=== PATIENT | female | born 1995 | race Caucasian/White ===

== ENCOUNTER 2017-09-16 10:18 | Observation (INO) | payer BC ==
[2017-09-16] VITALS (12 sets, daily range): BP systolic 96–109; BP diastolic 51–74
--- NOTE | 2017-09-16 10:29 | ER Report ---
History and Physical Time Seen By MD: 10:28 Hx. of Stated Complaint: Patient complains of abdominal pain since yesterday. Started high and has moved low. Associated vomitting and diarrhea HPI/ROS CHIEF COMPLAINT: Abdominal pain HISTORY OF PRESENT ILLNESS: Patient is a 22-year-old female presents with diffuse abdominal pain which started in the midepigastrium is located in the periumbilical distribution. The patient reports that the pain started yesterday evening and has persisted throughout the night. Last solid intake was yesterday evening. Patient reports having nausea and vomiting throughout the morning with persistent pain. She has not been able to tolerate oral intake today. Patient is afebrile, hemodynamically stable time of evaluation. Denies headache, blurred vision, chest pain, shortness of breath. She didn't complain of mild dysuria. REVIEW OF SYSTEMS: Constitutional: No fever, no chills. Eyes: No discharge. ENT: No sore throat. Cardiovascular: No chest pain, no palpitations. Respiratory: No cough, no shortness of breath. Gastrointestinal: + Periumbilical abdominal pain, + nausea and vomiting. Genitourinary: No hematuria, + mild dysuria Musculoskeletal: No back pain. Skin: No rashes. Neurological: No headache. Allergies: Coded Allergies: No Known Drug Allergies (Unverified , 09/16/17) Home Meds No Active Prescriptions or Reported Meds Hx Substance Use Disorder: No Hx Alcohol Use: No Constitutional Vital Sign - Last 24 Hours 09/16/17 10:21 Temp 97.9 Pulse 78 Resp 16 B/P (MAP) 115/73 Pulse Ox 98 O2 Delivery Room Air Physical Exam General Appearance: The patient is alert, has no immediate need for airway protection and no signs of toxicity. No acute distress Eyes: Pupils equal and round no pallor or injection. ENT, Mouth: Mucous membranes are moist. Respiratory: There are no retractions, lungs are clear to auscultation. Cardiovascular: Regular rate and rhythm. [ ] Gastrointestinal: Abdomen is soft and + tender to palpation in periumbilical distribution, no masses, bowel sounds normal. Neurological: No focal deficits Skin: Warm and dry, no rashes. Musculoskeletal: Neck is supple non tender. Extremities are nontender, nonswollen and have full range of motion. DIFFERENTIAL DIAGNOSIS: After history and physical exam differential diagnosis was considered for abdominal pain including but not limited to appendicitis, cholecystitis, gastritis and urinary tract infection. Medical Decision Making Data Points Result Diagram: 09/16/17 1032 09/16/17 1032 Laboratory Hematology Test 09/16/17 10:32 09/16/17 11:27 Red Blood Count 4.83 M/uL (4.17-5.56) Mean Corpuscular Volume 89.9 fL (80.0-96.0) Mean Corpuscular Hemoglobin 31.6 pg (26.0-33.0) Mean Corpuscular Hemoglobin Concent 35.1 g/dL (32.0-36.0) Red Cell Distribution Width 13.0 % (11.5-14.5) Mean Platelet Volume 9.4 fL (7.2-11.1) Neutrophils (%) (Auto) 92.2 % (39.4-72.5) Lymphocytes (%) (Auto) 2.1 % (17.6-49.6) Monocytes (%) (Auto) 5.4 % (4.1-12.4) Eosinophils (%) (Auto) 0.0 % (0.4-6.7) Basophils (%) (Auto) 0.3 % (0.3-1.4) Nucleated RBC Relative Count (auto) 0.0 /100WBC Neutrophils # (Auto) 22.3 K/uL (2.0-7.4) Lymphocytes # (Auto) 0.5 K/uL (1.3-3.6) Monocytes # (Auto) 1.3 K/uL (0.3-1.0) Eosinophils # (Auto) 0.0 K/uL (0.0-0.5) Basophils # (Auto) 0.1 K/uL (0.0-0.1) Nucleated RBC Absolute Count (auto) 0.00 K/uL Sodium Level 138 mmol/L (137-145) Potassium Level 3.6 mmol/L (3.5-5.0) Chloride Level 100 mmol/L (98-107) Carbon Dioxide Level 22 mmol/L (22-31) Blood Urea Nitrogen 11 mg/dl (7-18) Creatinine 0.80 mg/dl (0.52-1.04) Glomerular Filtration Rate Calc > 60.0 Random Glucose 127 mg/dl (75-110) Calcium Level 9.9 mg/dl (8.4-10.2) Total Bilirubin 1.2 mg/dl (0.2-1.3) Aspartate Amino Transf (AST/SGOT) 22 U/L (0-35) Alanine Aminotransferase (ALT/SGPT) 21 U/L (0-56) Alkaline Phosphatase 70 U/L (0-126) Total Protein 7.9 gm/dl (6.3-8.2) Albumin 4.8 g/dl (3.5-5.0) Lipase 41 U/L (23-300) Human Chorionic Gonadotropin, Qual Negative (NEGATIVE) Urine Color Yellow Urine Clarity Slightly-cloudy Urine pH 6.0 pH (4.8-9.5) Urine Specific Randolph 1.026 Urine Protein 30 mg/dL (NEGATIVE) Urine Glucose (UA) Negative mg/dL (NEGATIVE) Urine Ketones 80 mg/dL (NEGATIVE) Urine Blood Negative (NEGATIVE) Urine Nitrite Negative (NEGATIVE) Urine Bilirubin Negative (NEGATIVE) Urine Urobilinogen Negative mg/dL (0.2-1.9) Urine Leukocyte Esterase Negative (NEGATIVE) Urine RBC None /HPF (0-2/HPF) Urine WBC 1 /HPF (0-5/HPF) Urine Squamous Epithelial Cells Moderate /LPF (</=FEW) Urine Bacteria Negative /HPF (NONE-FEW) Urine Mucus Few /HPF (NONE-FEW) Chemistry Test 09/16/17 10:32 09/16/17 11:27 White Blood Count 24.1 k/uL (4.5-11.0) Red Blood Count 4.83 M/uL (4.17-5.56) Hemoglobin 15.3 g/dL (12.0-16.0) Hematocrit 43.5 % (34.0-47.0) Mean Corpuscular Volume 89.9 fL (80.0-96.0) Mean Corpuscular Hemoglobin 31.6 pg (26.0-33.0) Mean Corpuscular Hemoglobin Concent 35.1 g/dL (32.0-36.0) Red Cell Distribution Width 13.0 % (11.5-14.5) Platelet Count 231 K/uL (150-450) Mean Platelet Volume 9.4 fL (7.2-11.1) Neutrophils (%) (Auto) 92.2 % (39.4-72.5) Lymphocytes (%) (Auto) 2.1 % (17.6-49.6) Monocytes (%) (Auto) 5.4 % (4.1-12.4) Eosinophils (%) (Auto) 0.0 % (0.4-6.7) Basophils (%) (Auto) 0.3 % (0.3-1.4) Nucleated RBC Relative Count (auto) 0.0 /100WBC Neutrophils # (Auto) 22.3 K/uL (2.0-7.4) Lymphocytes # (Auto) 0.5 K/uL (1.3-3.6) Monocytes # (Auto) 1.3 K/uL (0.3-1.0) Eosinophils # (Auto) 0.0 K/uL (0.0-0.5) Basophils # (Auto) 0.1 K/uL (0.0-0.1) Nucleated RBC Absolute Count (auto) 0.00 K/uL Glomerular Filtration Rate Calc > 60.0 Calcium Level 9.9 mg/dl (8.4-10.2) Total Bilirubin 1.2 mg/dl (0.2-1.3) Aspartate Amino Transf (AST/SGOT) 22 U/L (0-35) Alanine Aminotransferase (ALT/SGPT) 21 U/L (0-56) Alkaline Phosphatase 70 U/L (0-126) Total Protein 7.9 gm/dl (6.3-8.2) Albumin 4.8 g/dl (3.5-5.0) Lipase 41 U/L (23-300) Human Chorionic Gonadotropin, Qual Negative (NEGATIVE) Urine Color Yellow Urine Clarity Slightly-cloudy Urine pH 6.0 pH (4.8-9.5) Urine Specific Randolph 1.026 Urine Protein 30 mg/dL (NEGATIVE) Urine Glucose (UA) Negative mg/dL (NEGATIVE) Urine Ketones 80 mg/dL (NEGATIVE) Urine Blood Negative (NEGATIVE) Urine Nitrite Negative (NEGATIVE) Urine Bilirubin Negative (NEGATIVE) Urine Urobilinogen Negative mg/dL (0.2-1.9) Urine Leukocyte Esterase Negative (NEGATIVE) Urine RBC None /HPF (0-2/HPF) Urine WBC 1 /HPF (0-5/HPF) Urine Squamous Epithelial Cells Moderate /LPF (</=FEW) Urine Bacteria Negative /HPF (NONE-FEW) Urine Mucus Few /HPF (NONE-FEW) Urinalysis Test 09/16/17 11:27 Urine Color Yellow Urine Clarity Slightly-cloudy Urine pH 6.0 pH (4.8-9.5) Urine Specific Randolph 1.026 Urine Protein 30 mg/dL (NEGATIVE) Urine Glucose (UA) Negative mg/dL (NEGATIVE) Urine Ketones 80 mg/dL (NEGATIVE) Urine Blood Negative (NEGATIVE) Urine Nitrite Negative (NEGATIVE) Urine Bilirubin Negative (NEGATIVE) Urine Urobilinogen Negative mg/dL (0.2-1.9) Urine Leukocyte Esterase Negative (NEGATIVE) Urine RBC None /HPF (0-2/HPF) Urine WBC 1 /HPF (0-5/HPF) Urine Squamous Epithelial Cells Moderate /LPF (</=FEW) Urine Bacteria Negative /HPF (NONE-FEW) Urine Mucus Few /HPF (NONE-FEW) ED Course/Re-evaluation ED Course Patient is a 22-year-old female here with complaints of abdominal pain since yesterday, last solid oral intake was yesterday evening. She reports nausea and vomiting throughout the morning and migration of pain to the periumbilical area from the midepigastric area. Patient was noted to have a leukocytosis of 24, 000. She was given fluids, Zofran, analgesia and was found to have an unremarkable x-ray series. Due to the leukocytosis and persistent pain, patient was taken for CT imaging which identified an uncomplicated appendicitis. I discussed the patient with Dr. Laboy who accepted the patient for surgery. Zosyn was administered. Decision to Disposition Date: Sep 16, 2017 Decision to Disposition Time: 13:20 Depart Departure Latest Vital Signs Vital Signs Date Time Temp Pulse Resp B/P (MAP) Pulse Ox O2 Delivery O2 Flow Rate FiO2 09/16/17 10:21 97.9 78 16 115/73 98 Room Air Impression: Primary Impression: Appendicitis Condition: Improved Disposition: Admitted from ER New Scripts No Active Prescriptions or Reported Meds MAYA ALANIZ DO Sep 16, 2017 10:29
[2017-09-16] MEDS ORDERED: NS(*) 0.9% 1000 ML BAG 1,000 ML IV ONE (10:33)
[2017-09-16] MEDS ORDERED: ONDANSETRON 4 MG/2 ML VIAL IVP ONE (10:35)
[2017-09-16 10:42] LABS: PLATELET COUNT, AUTOMATED 231 K/uL (150-450)
[2017-09-16] MEDS ORDERED: MORPHINE 4 MG/ML SDV IVP ONE (10:45)
--- NOTE | 2017-09-16 11:25 | RADIOLOGY IMAGING REPORT ---
FACILITY: [facility] - [place] PATIENT NAME: Shefali Browne : 1995 MR: [id number] V: [id number] EXAM DATE: ORDERING PHYSICIAN: MAYA ALANIZ TECHNOLOGIST: Location: [facility] - [place] Patient: Shefali Browne : 1995 Visit/Account:[id number] Date of Sevice: 09/16/2017 ACUTE ABDOMEN SERIES 3 VIEW HISTORY: abdominal pain Chest and three-view examination of the abdomen FINDINGS: Nonspecific bowel gas pattern. No abdominal mass lesions. No abnormal calcifications. Chest is clear. Apparent extraneous foreign material overlying the central heart shadow. Bony structures unremarkabl e. IMPRESSION: 1. Unremarkable abdominal series. 2. Normal chest Report Dictated By: Wilfredo Gregg MD at 09/16/2017 11:20 AM Report E-Signed By: Wilfredo Gregg MD at 09/16/2017 11:22 AM WSN:[id number]
[2017-09-16] MEDS ORDERED: IOPAMIDOL 76% 75 ML INFUS BTL 75 ML ONE (11:39)
--- NOTE | 2017-09-16 12:40 | RADIOLOGY IMAGING REPORT ---
FACILITY: [facility] - [place] PATIENT NAME: Shefali Bronwe : 1995 MR: [id number] V: [id number] EXAM DATE: ORDERING PHYSICIAN: MAYA ALANIZ TECHNOLOGIST: Location: [facility] - [place] Patient: Shefali Browne : 1995 Visit/Account:[id number] Date of Sevice: 09/16/2017 EXAMINATION: CT abdomen and pelvis with contrast COMPARISON: None. HISTORY: leukocytosis, abdominal pain PROCEDURE: Multiplanar contrast enhanced CT of the abdomen and pelvis with 75 mL intravenous Isovue 3 70. One of the following dose optimization techniques was utilized in the performance of this exam: A utomated exposure control; adjustment of the mA and/or kV according to the patient's size; or use of an iterative reconstruction technique. Specific details can be referenced in the facility's radiolo gy CT exam operational policy. FINDINGS: Visualized thorax: Negative. Liver: Negative. Gallbladder and biliary system: Negative Spleen: Negative. Pancreas: Negative. Adrenal glands: Negative. Kidneys and bladder: Left kidney duplicated collecting system. No renal mass or hydronephrosis. Urina ry bladder is unremarkable. The ureters are poorly visualized; a 3 mm calcification in the right santa pelvis is favored to be a phlebolith with a nonobstructing distal right ureteral stone thought to be less likely. Urinary bladder is unremarkable. Vessels: Within normal limits. Bowel and mesentery: Stomach and small bowel are within normal limits. Dilated appendix measuring up to 1.3 cm distally likely with a punctate calcified appendicolith in the appendiceal base. Minimal ev idence of mucosal hyperemia or periappendiceal inflammation. Minimal stool in colon. No other site of bowel or mesenteric inflammation. Pelvic organs: Pessary. Otherwise unremarkable. Lymph nodes: Negative. Free air/free fluid: Minimal nonspecific fluid in the dependent pelvis which is favored to be physiol ogic or reactive. No organized fluid collection. No pneumoperitoneum. Abdominal wall and osseous structures: Negative. IMPRESSION: Acute uncomplicated appendicitis. Results were discussed with MAYA ALANIZ at 09/16/2017 12:35 PM. Report Dictated By: Andrei Toure MD at 09/16/2017 12:23 PM Report E-Signed By: Andrei Toure MD at 09/16/2017 12:35 PM WSN:[id number]
[2017-09-16] MEDS ORDERED: PIPERACILLIN/TAZO*3.375GM VIAL 3.375 GM in NS(*) 0.9% 100 ML ADDVANT BAG 100 ML IVPB ONE (12:50)
[2017-09-16] MEDS ORDERED: HYDROmorphone* 1 MG/ML 1 MG/ML ML IVP ONE (13:00)
[2017-09-16] MEDS: NORMOSOL R SOLN(*) 1000 ML BAG 1,000 ML IV PRN ×2 (13:20→23:50)
[2017-09-16] MEDS ORDERED: MIDAZOLAM 2 MG/2 ML VIAL IVP PRN (14:05)
[2017-09-16] MEDS ORDERED: FAMOTIDINE 20 MG/50 ML PREMIX IVPB ONE (14:05)
[2017-09-16] MEDS ORDERED: MIDAZOLAM 2 MG/2 ML VIAL ONE (14:21)
[2017-09-16] MEDS ORDERED: fentaNYL CITR 100 MCG/2 ML AMP ONE (14:21)
[2017-09-16] MEDS ORDERED: ROCURONIUM BROM 10 MG/ML 10 ML ONE (14:22)
[2017-09-16] MEDS ORDERED: LIDOCAINE MPF 1% 5 ML VIAL ONE (14:22)
[2017-09-16] MEDS ORDERED: PROPOFOL EMUL(*) 10MG/ML 20 ML 20 ML ONE (14:22)
[2017-09-16] MEDS ORDERED: DEXAMETHASONE SOD PHOS 10MG/ML ONE (14:22)
[2017-09-16] MEDS ORDERED: ONDANSETRON 4 MG/2 ML VIAL ONE (14:22)
[2017-09-16] MEDS ORDERED: ROPIVACAINE 0.2% 20 ML VIAL ONE (14:26)
[2017-09-16] MEDS ORDERED: NORMOSOL R SOLN(*) 1000 ML BAG 1,000 ML IV PRN (14:46)
--- NOTE | 2017-09-16 14:46 | Post Operative Progress Note ---
Post Operative Progress Note Date: Sep 16, 2017 Time: 15:14 Surgeon: yolanda Anesthesia: dr trujillo Pre-Op Diagnosis: appendicitis Post-Op Diagnosis: same, gangrenous Procedure(s): BRODY Junior MD Sep 16, 2017 14:46
[2017-09-16] MEDS ORDERED: ONDANSETRON 4 MG/2 ML VIAL IVP PRN (14:50)
[2017-09-16] MEDS ORDERED: APAP/HYDROCODONE 325/5 TAB PO PRN (14:50)
[2017-09-16] MEDS ORDERED: SUGAMMADEX SOD 200 MG/2 ML SDV ONE (15:00)
--- NOTE | 2017-09-16 15:11 | HISTORY AND PHYSICAL ---
DATE OF ADMISSION: September 16, 2017 CHIEF COMPLAINT Low abdominal pain. HISTORY OF PRESENT ILLNESS This is a previously healthy 22-year-old female who yesterday developed some periumbilical and epigastric pain. It has persisted and shifted now to the low abdomen, more so on the right. She has had associated nausea and vomiting. She has had some loose stools. No urinary complaints. No previous history of a similar type pain. Patient was seen in the emergency department. A CT scan was obtained which shows findings consistent with appendicitis. PAST SURGICAL HISTORY Operations on wisdom teeth. ALLERGIES No known allergies. CURRENT MEDICATIONS control pills. REVIEW OF SYSTEMS No cardiac, pulmonary, liver or kidney disease, diabetes, hypertension. No history of deep venous thrombosis. PHYSICAL EXAMINATION GENERAL: A 22-year-old female in no acute distress. ABDOMEN: She has tenderness maximal in the right lower quadrant with guarding to deep palpation. No palpable mass. IMPRESSION Acute appendicitis. PLAN Laparoscopic appendectomy. We discussed the procedure, complications, recovery time. She seems to understand and wishes to proceed. COLLEEN
[2017-09-16] MEDS ORDERED: KETOROLAC 30 MG/ML VIAL IVP SCH (16:00)
--- NOTE | 2017-09-16 16:53 | OPERATIVE REPORT 1 ---
EVENT DATE: September 16, 2017 SURGEON: Gilmar Laboy MD ANESTHESIOLOGIST: Luciano Nevarez MD ANESTHESIA: General. PREOPERATIVE DIAGNOSIS Acute appendicitis. POSTOPERATIVE DIAGNOSIS Acute gangrenous appendicitis. PROCEDURE PERFORMED Laparoscopic appendectomy. DESCRIPTION OF PROCEDURE Patient was placed in the supine position, given general anesthetic. Her abdomen was prepped and draped in a sterile fashion. Incision was made just above the umbilicus. A Veress needle was inserted. The abdomen was insufflated with CO2. We injected 0.2% ropivacaine into the salient skin and muscle prior to these incisions. We made a 5 mm port in the left lower quadrant and a 10 mm in the suprapubic region under direct vision. We then placed the patient in Trendelenburg, rotated to the left. Went down to the right lower quadrant, and in the pelvis, there was an acute gangrenous appendix. There was no perforation. Mesoappendix was divided with the Harmonic scalpel to the appendiceal-cecal junction. We then placed an 0 chromic Endoloop at the appendiceal-cecal junction, 2-0 PDS Endoloops distal of this, cut between the two PDS Endoloops, placed it in an Endo Pouch, removed it from the field. We then inspected for bleeding. We had perfect hemostasis and an excellent tied off stump, and the procedure was terminated. Ports removed under direct vision. No bleeding was noted. Skin was closed with interrupted 4 -0 Maxon. Steri-Strips and Airstrip were placed. [facility]
[2017-09-16] MEDS ORDERED: ETON1VAG7 VG (17:01)
[2017-09-16] MEDS: KETOROLAC 30 MG/ML VIAL IVP SCH (21:41)
[2017-09-17 03:33] VITALS: BP 99/45
[2017-09-17] MEDS: KETOROLAC 30 MG/ML VIAL IVP SCH ×2 (03:33→09:11)
[2017-09-17 07:25] VITALS: BP 108/64
--- NOTE | 2017-09-17 09:05 | General Surgery Progress Note ---
Subjective Progress Notes Subjective pain gone. no complaints Physical Exam Vital Signs Date Time Temp Pulse Resp B/P (MAP) Pulse Ox O2 Delivery O2 Flow Rate FiO2 09/17/17 07:25 97.3 67 16 108/64 (79) 93 Nasal Cannula Intake and Output 09/18/17 06:59 # Voids 1 General Appearance: Alert, Awake, No Acute Distress GI: Soft and Non-Tender Result Diagram: 09/16/17 1032 09/16/17 1032 Assessment and Plan Problems: (1) Appendicitis Status: Acute Assessment & Plan: pt without complaints, doing well, home today Exam Sepsis Risk: No Definite Risk BRODY RIVERO MD Sep 17, 2017 09:05
[2017-09-17] MEDS ORDERED: KET10 PO (09:08)
[2017-09-17] MEDS ORDERED: HYDR-4309 PO (09:08)
--- NOTE | 2017-09-17 09:25 | Short(Outpt) Discharge Summary ---
Discharge Summary Reason for Hosp/Final Diag: (1) Appendicitis Status: Acute Hospital Course & Plan: pt without complaints, doing well, home today Departure Discharge to: Home Discharge Instructions Home Meds Active Scripts Ketorolac Tromethamine (KETOROLAC TROMETHAMINE) 10 Mg Tab, 10 MG PO Q6H, #16 TAB Prov:BRODY RIVERO MD 09/17/17 Hydrocodone Bit/Acetaminophen (NORCO 5-325 TABLET) 1 Each Tablet, 1 EACH PO Q4H Y for PAIN, #30 TAB Prov:BRODY RIVERO MD 09/17/17 Reported Medications Etonogestrel/Ethinyl Estradiol (NUVARING VAGINAL RING) 1 Each Vag.ring, 1 EACH VG, VAG.RING 09/16/17 Diet: Regular Activity: As Tolerated Special Instructions: remove bandage and shower tomorrow call [phone] if any problems BRODY RIVERO MD Sep 17, 2017 09:24
== END 2017-09-17 09:06 | disposition home or self-care (01) ==
LOC: ER 10:19 → OR 13:23 → MED 16:30
PROVIDERS: ADMIT Surgery; ATTEND Surgery
DX: K35.80 Unspecified acute appendicitis (principal)
CPT/HCPCS: 44970; 74022; 74177; 81001; 83690; 84703; 85025; 88304; 99285; G0378; J1100; J1170; J1885; J2001; J2250; J2270; J2405; J2543; J2704; J2795; J3010; J3490; J7030; J7050; Q9967; 82040; 82247; 82310; 82374; 82435; 82565; 82947; 84075; 84132; 84155; 84295; 84450; 84460; 84520